=== PATIENT | male | born 1970 | race African-American/Black ===

== ENCOUNTER 2019-01-25 23:19 | Emergency (ER) | payer OTHER ==
[~2019-01-25] VITALS: Ht 188 cm; Wt 91.2 kg
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
[2019-01-26 01:17] VITALS: BP 143/92
--- NOTE | 2019-01-26 01:17 | NUR ---
Patient discharged to home in stable condition. Written and verbal after care instructions given. Patient verbalizes understanding of instruction. Pt ambulatory with a steady gait
== END 2019-01-26 01:18 | disposition home or self-care (01) ==
LOC: ER 23:25
DX: K40.90 Unilateral inguinal hernia, without obstruction or gangrene, not specified as recurrent (principal)

== ENCOUNTER 2019-10-26 08:14 | Emergency (ER) | payer OTHER ==
[~2019-10-26] VITALS: Ht 188 cm; Wt 99.8 kg
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
[2019-10-26] MEDS ORDERED: ONDANSETRON HCL/PF 4 MG/2 ML VIAL ONE (08:40)
[2019-10-26] MEDS ORDERED: MORPHINE SULFATE INJ 4 MG/ML DISP.SYRIN ONE (08:40)
[2019-10-26] MEDS ORDERED: IV NS 0.9% 1,000 ML BAG IV ONE (09:00)
[2019-10-26] MEDS ORDERED: MORPHINE SULFATE INJ 2 MG/ML DISP.SYRIN IV ONE (09:00)
[2019-10-26] MEDS ORDERED: ONDANSETRON HCL/PF 4 MG/2 ML VIAL IVP ONE (09:00)
[2019-10-26 09:05] LABS: BASOPHILS % (AUTO) 0.7 % (0.0-2.0); EOSINOPHILS % (AUTO) 2.4 % (0.0-6.0); HEMATOCRIT 52 % (39-51); HEMOGLOBIN 17.2 g/dL (13.5-17.5); LYMPHOCYTES # (AUTO) 1.4 /CMM (0.8-4.8); LYMPHOCYTES % (AUTO) 27.7 % (20.0-44.0); MEAN CORPUSCULAR HGB CONC 34 g/dl (31.0-36.0); MEAN CORPUSCULAR VOLUME 96 fL (80-96); MONOCYTES # (AUTO) 0.3 /CMM (0.1-1.30); MONOCYTES % (AUTO) 6.2 % (2.0-12.0); NEUTROPHILS # (AUTO) 3.3 /CMM (1.8-8.9); PLATELET COUNT (AUTO) 202 /CMM (150-450); RED BLOOD CELL COUNT(AUTO) 5.39 MIL/uL (4.5-6.0); WHITE BLOOD COUNT (AUTO) 5.2 K/uL (4.3-11.0)
[2019-10-26 09:12] LABS: CALCIUM, SERUM 9.6 mg/dL (8.5-10.1); CREATININE 1.1 mg/dL (0.6-1.3); POTASSIUM 4.4 mmol/L (3.5-5.1)
[2019-10-26 09:15] LABS: APPEARANCE,URINE Clear (CLEAR); BILIRUBIN,URINE Negative (NEGATIVE); BLOOD, URINE Negative Ery/uL (NEGATIVE); COLOR,URINE Yellow (YELLOW); KETONES,URINE Negative (NEGATIVE); LEUKOCYTE ESTERASE ,URINE Negative (NEGATIVE); NITRITE, URINE Negative (NEGATIVE); PH,URINE 6.5 (5.0-8.0); PROTEIN,URINE Negative (NEGATIVE); UGLUCOSE Negative (NEGATIVE)
[2019-10-26 09:16] LABS: BACTERIA,URINE Rare /HPF (None Seen); RBC,URINE 0-2 /HPF (0-2); WBC,URINE 0-2 /HPF (0-3)
[2019-10-26 09:17] LABS: SQUAMOUS EPITHELIAL CELL,UR Rare /HPF (None Seen)
[2019-10-26] MEDS ORDERED: IOHEXOL-300 100 ML VIAL IV ONE (09:21)
[2019-10-26 09:29] LABS: ALBUMIN 3.9 g/dL (3.4-5.0); BILIRUBIN,DIRECT 0.1 mg/dL (0.0-0.2); BILIRUBIN,TOTAL 0.5 mg/dL (0.2-1.0); TOTAL PROTEIN, SERUM 7.6 g/dL (6.4-8.2)
[2019-10-26 11:03] VITALS: BP 135/81
--- NOTE | 2019-10-26 11:03 | NUR ---
patient left in stable condition accompanied by [employer] going to court. On room air, denies any pain at this time.
== END 2019-10-26 11:03 ==
LOC: ER 08:17
DX: K40.90 Unilateral inguinal hernia, without obstruction or gangrene, not specified as recurrent (principal)
CPT/HCPCS: 36415; 74177; 80048; 80076; 81001; 83690; 85025; 96374; 96375; 99285; J2270; J2405; J7030; Q9967; 81000-TC

== ENCOUNTER 2021-04-11 21:31 | Emergency (ER) | payer OTHER ==
[~2021-04-11] VITALS: Ht 188 cm; Wt 100.2 kg
--- NOTE | 2021-04-11 22:50 | NUR ---
PATIENT BIBSELF C/O LEFT CALF PAIN RADIATING TO THE LEFT HIP W/ HX OF RLE DVT. PATIENT IS A/O X 4, RR EVEN AND UNLABORED, NO SOB NOTED. PATIENT CONNECTED TO OIL DISPATCHER AND POX.
--- NOTE | 2021-04-11 23:41 | NUR ---
Maryann kiran in [facility] - 04/12/21 at 0048 by JONATHAN RAD AT BEDSIDE
--- NOTE | 2021-04-12 00:38 | NUR ---
US AT BEDSIDE
[2021-04-12 01:22] VITALS: BP 144/88
--- NOTE | 2021-04-12 01:38 | NUR ---
Patient discharged to home in stable condition. Written and verbal after care instructions given. Patient verbalizes understanding of instruction.
== END 2021-04-12 01:38 | disposition home or self-care (01) ==
LOC: EDUNIT# 21:31 → ER 21:33
DX: M79.662 Pain in left lower leg (principal); M79.18 Myalgia, other site; F17.200 Nicotine dependence, unspecified, uncomplicated; Z98.890 Other specified postprocedural states
CPT/HCPCS: 93971-TC